=== PATIENT | female | born 1960 | race Caucasian/White ===

== ENCOUNTER 2016-05-24 17:30 | Emergency (ER) | payer SELFPAY ==
[2016-05-24] VITALS (9 sets, daily range): BP systolic 142–211; BP diastolic 68–117; PULSE 66–106; RESP 16–18; TEMP 98; O2SAT 94–100
[~2016-05-24] VITALS: Ht 170.2 cm; Wt 68.0 kg
[~2016-05-24 17:30] MED LIST: FISHCAP PO; HYDR-2768 PO; LISI-363 PO; LISI-366 PO; PROZ20CA11 PO
--- NOTE | 2016-05-24 17:55 | PD ---
HPI Chief Complaint: Fall Time Seen by Provider: 17:50 Travel History International Travel<30 days: No Contact w/Intl Traveler<30days: No Traveled to known affect area: No History of Present Illness HPI This 56-year-old female says she tripped and landed on her left arm. Complaining of a lot of pain in the left elbow. She did not hit her head. She says nothing else hurts except for the elbow. She says she is allergic to all pain medicines. She also has a history of palpitations. She later told me that she did receive pain medicine at [place] and review of that chart shows that she received Dilaudid and oxycodone. PFSH Past Medical History Depression: Yes Cardiac Catheterization: Yes High Cholesterol: Yes Chest Pain: Yes (2008) Congestive Heart Failure: No Diabetes: No Diminished Hearing: No Hypertension: Yes Myocardial Infarction: Yes (AT AGE 16 AND 05/27 PER PT) Menopausal: Yes : 2 Para: 2 Past Surgical History Abdominal Surgery: Yes (EXPLORATORY ) Appendectomy: Yes Coronary Artery Bypass Graft: No Ear Surgery: Yes (RT EAR SURG- repair hearing loss) Hysterectomy: Yes (1987) Social History Alcohol Use: Yes (occas. beer) Tobacco Use: Yes (1 ppd) Substance Use: No Allergies-Medications (Allergen,Severity, Reaction): Coded Allergies: Codeine (Verified Allergy, Severe, RASH/VOMITING, 05/24/16) Penicillin (Verified Allergy, Severe, 05/24/16) Remeron Tatyana-Tab (Verified Allergy, Unknown, 05/24/16) Morphine (Verified Adverse Reaction, Intermediate, NAUSEA, 05/24/16) Reported Meds & Prescriptions Reported Meds & Active Scripts Active Reported Lisinopril 20 Mg Tab 20 Mg PO DAILY Review of Systems General / Constitutional: No: Chills Eyes: No: Diploplia HENT: No: Headaches, Vertigo Cardiovascular: No: Chest Pain or Discomfort Respiratory: No: Cough, Shortness of Breath Gastrointestinal: No: Nausea, Vomiting Genitourinary: No: Frequency, Dysuria Musculoskeletal: Positive: Myalgias, Pain Skin: No Itching, No Dryness Neurologic: No: Weakness Physical Exam Narrative GENERAL: Well-developed female SKIN: Focused skin assessment warm/dry. HEAD: Atraumatic. Normocephalic. EYES: Pupils equal and round. No scleral icterus. No injection or drainage. ENT: No nasal bleeding or discharge. Mucous membranes pink and moist. NECK: Trachea midline. No JVD. CARDIOVASCULAR: Regular rate and rhythm. No murmur appreciated. RESPIRATORY: No accessory muscle use. Clear to auscultation. Breath sounds equal bilaterally. GASTROINTESTINAL: Abdomen soft, non-tender, nondistended. Hepatic and splenic margins not palpable. MUSCULOSKELETAL: . No clubbing. No cyanosis. No edema. No swelling of the left elbow. She refuses any attempted movement. It is exquisitely tender. 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 No obvious cranial nerve deficits. Motor grossly within normal limits. Normal speech. PSYCHIATRIC: Appropriate mood and affect; insight and judgment normal. Data Data Last Documented VS Vital Signs Date Time Temp Pulse Resp B/P Pulse Ox O2 Delivery O2 Flow Rate FiO2 05/24/16 17:57 106 16 211/114 100 Room Air 05/24/16 17:34 98.0 Orders Elbow, Limited (Ap&Lat) (05/24/16 ) Hydromorphone Pf Inj (Dilaudid Pf Inj) (05/24/16 18:30) Ondansetron Inj (Zofran Inj) (05/24/16 18:30) Propofol 200 Mg/20 Ml Inj (Diprivan 200 (05/24/16 18:30) Elbow, Limited (Ap&Lat) (05/24/16 19:25) Splint Or Brace Apply/Monitor (05/24/16 19:40) Fiberglass Splint Elbow Adult (05/24/16 ) Sling Cradle Arm (05/24/16 ) MDM Medical Decision Making Medical Screen Exam Complete: Yes Emergency Medical Condition: Yes Medical Record Reviewed: Yes Differential Diagnosis Differential includes fracture, dislocation Narrative Course X-ray of the left elbow shows a posterior dislocation. There is question of a small avulsion off the anterior clinoid. Conscious sedation was performed in the dislocation has been reduced. Patient tolerated the procedure well and the arms noted. She'll be released Procedures Procedure Narrative After informed consent was obtained the patient was sedated with propofol. She was maintained on cardiopulmonary monitoring. The elbow was reduced with longitudinal traction and flexion. Straight leg shows the bones to be in good position. She'll be splinted and recommendations for orthopedic follow-up. After reduction there is good sensation in the hand. There is good radial pulse. Time of sedation was 15 minutes Diagnosis Primary Impression: Dislocation of left elbow Qualified Code: S53.105A - Dislocation of left elbow, initial encounter Additional Instructions: Follow-up with Dr. Abernathy, apply ice to elbow Scripts Oxycodone-Acetaminophen (Percocet)7.5-325 mg Tab1 Tab PO Q4H PRN (PAIN) #30 TAB Ref 0 Prov:Bradford Bailey MD 05/24/16 Disposition: 01 DISCHARGE HOME Condition: Stable Bradford Bailey MD May 24, 2016 17:55
[2016-05-24] MEDS ORDERED: LISI-515 PO (18:03)
[2016-05-24] MEDS ORDERED: HYDROmorphone HCL PF 1 MG/ML VIAL IV PUSH ONE (18:30)
[2016-05-24] MEDS ORDERED: ONDANSETRON HCL 4 MG/2 ML VIAL IV PUSH ONE (18:30)
[2016-05-24] MEDS ORDERED: PROPOFOL 200 MG/20 ML AMP IV ONE (18:30)
--- NOTE | 2016-05-24 18:54 | RADHPO ---
EXAM DATE/TIME: 05/24/2016 18:07 [facility] COMPARISON: No previous studies available for comparison. INDICATIONS : Left elbow pain; fell today. MEDICAL HISTORY : None. SURGICAL HISTORY : None. ENCOUNTER: Initial ACUITY: 1 day PAIN SCORE: 10/10 LOCATION: Left elbow. FINDINGS: There is complete dislocation of the humerus anteriorly out of the joint. There may be a tiny avulsio n at this site coming off the anterior clinoid. CONCLUSION: Complete dislocation. KChuckie Martinez MD on May 24, 2016 at 18:51 Board Certified Radiologist. This report was verified electronically.
--- NOTE | 2016-05-24 20:32 | RADHPO ---
EXAM DATE/TIME: 05/24/2016 20:09 [facility] COMPARISON: ELBOW LEFT LIMITED (AP & LAT), May 24, 2016, 18:07. INDICATIONS : Post reduction left elbow. MEDICAL HISTORY : None. SURGICAL HISTORY : None. ENCOUNTER: Subsequent ACUITY: 1 day PAIN SCORE: 4/10 LOCATION: Left elbow. FINDINGS: Previously seen dislocation has been reduced. The rest of the examination has not significantly connor ed. CONCLUSION: Reduction of the previously seen dislocation. Rodger Martinez MD on May 24, 2016 at 20:30 Board Certified Radiologist. This report was verified electronically.
[2016-05-24] MEDS ORDERED: PERC7.5T13 PO (20:35)
[2016-05-24] MEDS ORDERED: oxyCODONE/ACETAMINOPHEN 5 MG/325 MG TAB PO ONE (21:00)
== END 2016-05-24 21:04 | disposition home or self-care (01) ==
LOC: EDBD → PHED 17:30
DX: S53.105A Unspecified dislocation of left ulnohumeral joint, initial encounter (principal); I10 Essential (primary) hypertension; E78.00 Pure hypercholesterolemia, unspecified; F17.200 Nicotine dependence, unspecified, uncomplicated; Z86.59 Personal history of other mental and behavioral disorders; Z86.79 Personal history of other diseases of the circulatory system; W01.0XXA Fall on same level from slipping, tripping and stumbling without subsequent striking against object, initial encounter
CPT/HCPCS: 24600; 73070; 96374; 96375; 99152; 99283; J1170; J2405

== ENCOUNTER 2016-06-01 11:40 | Emergency (ER) | payer SELFPAY ==
[~2016-06-01] VITALS: Ht 165.1 cm; Wt 66.0 kg
[~2016-06-01 11:40] MED LIST changes: -FISHCAP PO; -HYDR-2768 PO; -LISI-363 PO; -LISI-366 PO; +LISI-515 PO; +PERC7.5T13 PO; -PROZ20CA11 PO
[2016-06-01 12:02] VITALS: BP 165/105; PULSE 70; RESP 16; TEMP 98.5; O2SAT 99
--- NOTE | 2016-06-01 12:13 | PD ---
HPI Chief Complaint: Wound/Suture/Staple Re-Check Time Seen by Provider: 12:13 Travel History International Travel<30 days: No Contact w/Intl Traveler<30days: No Traveled to known affect area: No History of Present Illness HPI 57-year-old female presents the emergency department status post left elbow dislocation and reduction on May 24, 2016. Patient presents with ongoing pain and need for pain control as she is "unable to take her oxycodone due to nausea." Patient was referred to Dr. Abernathy orthopedist follow-up, but she has not set that appointment up yet as she is without insurance or a picture ID. Patient feels the splint that is on there is not sufficient. Patient is asking if we can take it off. She has no other acute complaints. Patient states she is allergic to codeine, morphine, penicillin, Percocet, Remeron. PFSH Past Medical History Hx Anticoagulant Therapy: No Depression: Yes Cardiac Catheterization: Yes Cardiovascular Problems: Yes ([place], HTN) High Cholesterol: Yes Chest Pain: Yes (2008) Congestive Heart Failure: No Diabetes: No Diminished Hearing: No Hypertension: Yes Respiratory: Yes (EMPHYSEMA) Myocardial Infarction: Yes (AT AGE 16 AND 05/27 PER PT) ?: Not Menopausal: Yes : 2 Para: 2 Past Surgical History Abdominal Surgery: Yes (EXPLORATORY ) Appendectomy: Yes Coronary Artery Bypass Graft: No Ear Surgery: Yes (RT EAR SURG- repair hearing loss) Hysterectomy: Yes Social History Alcohol Use: Yes (occas. beer) Tobacco Use: Yes (1 ppd) Substance Use: No Allergies-Medications (Allergen,Severity, Reaction): Coded Allergies: Codeine (Verified Allergy, Severe, RASH/VOMITING, 06/01/16) Penicillin (Verified Allergy, Severe, 06/01/16) Percocet (Verified Allergy, Unknown, 06/01/16) Remeron Tatyana-Tab (Verified Allergy, Unknown, 06/01/16) Morphine (Verified Adverse Reaction, Intermediate, NAUSEA, 06/01/16) Reported Meds & Prescriptions Reported Meds & Active Scripts Active Percocet (Oxycodone-Acetaminophen) 7.5-325 mg Tab 1 Tab PO Q4H PRN Reported Lisinopril 20 Mg Tab 20 Mg PO DAILY Review of Systems Except as stated in HPI: all other systems reviewed are Neg General / Constitutional: No: Fever Eyes: No: Visual changes HENT: No: Headaches Cardiovascular: No: Chest Pain or Discomfort Respiratory: No: Shortness of Breath Gastrointestinal: No: Abdominal Pain Genitourinary: No: Dysuria Musculoskeletal: No: Pain Skin: No Rash Neurologic: No: Weakness Psychiatric: No: Depression Endocrine: No: Polydipsia Hematologic/Lymphatic: No: Easy Bruising Physical Exam Narrative GENERAL: Patient appears in no acute distress. SKIN: Warm and dry. Normal color. Normal turgor. There is mild ecchymosis and swelling over the left elbow consistent with her injury. HEAD: Atraumatic. Normocephalic. EYES: Pupils equal and round. No scleral icterus. No injection or drainage. ENT: No nasal bleeding or discharge. Mucous membranes pink and moist. Pharynx is clear. NECK: Trachea midline. Neck is supple nontender. CARDIOVASCULAR: Regular rate and rhythm. RESPIRATORY: No accessory muscle use. Clear to auscultation. Breath sounds equal bilaterally. MUSCULOSKELETAL: Extremities without clubbing, cyanosis, or edema. No obvious deformities. Range of motion of the left elbow is limited secondary to pain. Left Junior Account Executive strength is normal. Left neurovascular exam is normal. New splint is applied. NEUROLOGICAL: Awake and alert. No obvious cranial nerve deficits. Motor grossly within normal limits. Five out of 5 muscle strength in the arms and legs. Normal speech. PSYCHIATRIC: Appropriate mood and affect; insight and judgment normal. Data Data Last Documented VS Vital Signs Date Time Temp Pulse Resp B/P Pulse Ox O2 Delivery O2 Flow Rate FiO2 06/01/16 12:02 98.5 70 16 165/105 99 Orders Acetamin-Hydrocod 325-10 Mg ([place] 10-32 (06/01/16 12:30) Support Splint (06/01/16 12:29) [facility] Medical Decision Making Medical Screen Exam Complete: Yes Emergency Medical Condition: Yes Medical Record Reviewed: Yes Differential Diagnosis Fall. Left elbow dislocation. Need for orthopedic follow-up. Pain management. Narrative Course Patient is medically stable at time of exam. Patient is given Lortab 10/325 by mouth 1. Left elbow is resplinted with sugar tong and posterior combination splint. Sling is applied. Patient is given a prescription for tramadol 50 mg one every 6 hours when necessary pain #20. Patient also given ibuprofen 600 mg 4 times a day for 40. Patient is given a one-time visit for orthopedic which she needs to follow-up with for further management and pain control. Diagnosis Primary Impression: Dislocation of left elbow Qualified Code: S53.105D - Dislocation of left elbow, subsequent encounter Referrals: Dean Abernathy MD call for appointment Patient Instructions: General Instructions Additional Instructions: Patient is given Lortab 10/325 by mouth 1. Left elbow is resplinted with sugar tong and posterior combination splint. Sling is applied. Patient is given a prescription for tramadol 50 mg one every 6 hours when necessary pain #20. Patient also given ibuprofen 600 mg 4 times a day for 40. Patient is given a one-time visit for orthopedic which she needs to follow-up with for further management and pain control. Disposition: 01 DISCHARGE HOME Condition: Stable Heber Vo Jun 01, 2016 12:13
[2016-06-01] MEDS ORDERED: ACETAMINOPHEN/HYDROcodone 325 MG/10 MG TAB PO ONE (12:30)
[2016-06-01] MEDS ORDERED: IBUP-232 PO (12:41)
[2016-06-01] MEDS ORDERED: TRAM50TA PO (12:41)
[2016-06-01] MEDS ORDERED: VIST50CA PO (13:49)
== END 2016-06-01 13:53 | disposition home or self-care (01) ==
LOC: PHEFT 11:40
DX: S53.105D Unspecified dislocation of left ulnohumeral joint, subsequent encounter (principal)
CPT/HCPCS: 29105

== ENCOUNTER 2017-02-28 23:20 | Emergency (ER) | payer SELFPAY ==
[~2017-02-28] VITALS: Ht 162.6 cm; Wt 70.0 kg
[~2017-02-28 23:20] MED LIST changes: +IBUP-232 PO; +TRAM50TA PO; +VIST50CA PO
[2017-02-28 23:38] VITALS: BP 190/92; PULSE 113; RESP 22; TEMP 98.1; O2SAT 98
[2017-02-28 23:39] VITALS: O2SAT 98
[2017-02-28] MEDS ORDERED: SODIUM CHLORIDE 0.9% FLUSH 10 ML FLUSH IVF PRN (23:45)
[2017-02-28] MEDS ORDERED: methylPREDNISolone SOD SUCC 125 MG/2 ML VIAL IV PUSH ONE (23:45)
[2017-02-28] MEDS ORDERED: RESP: ALBUTEROL 2.5 MG/IPRATROPIUM 0.5 MG NEB (SCH) NEB ONE (23:45)
[2017-02-28 23:49] VITALS: BP 190/92; PULSE 128; RESP 18; O2SAT 97
[2017-02-28 23:50] VITALS: BP 176/105; PULSE 133; RESP 18; O2SAT 95
[2017-03-01 00:08] LABS: AUTOMATED NEUTROPHIL # 4.7 TH/MM3 (1.8-7.7); BASOPHIL # 0.1 TH/MM3 (0-0.2); BASOPHIL % 0.7 % (0.0-2.0); EOSINOPHIL # 0.3 TH/MM3 (0-0.4); EOSINOPHIL % 4.2 % (0.0-4.0); HEMATOCRIT 39.9 % (35.0-46.0); HEMOGLOBIN 13.4 GM/DL (11.6-15.3); LYMPH % 25.1 % (9.0-44.0); LYMPHOCYTE # 1.9 TH/MM3 (1.0-4.8); MEAN CELL VOLUME 90.7 FL (80.0-100.0); MEAN CORPUSCULAR HEMOGLOBIN 30.6 PG (27.0-34.0); MEAN CORPUSCULAR HGB CONC 33.7 % (32.0-36.0); MEAN PLATELET VOLUME 9.1 FL (7.0-11.0); MONOCYTE # 0.6 TH/MM3 (0-0.9); PLATELET COUNT 286 TH/MM3 (150-450); RED BLOOD COUNT 4.39 MIL/MM3 (4.00-5.30); WHITE BLOOD COUNT 7.6 TH/MM3 (4.0-11.0)
--- NOTE | 2017-03-01 00:10 | RADRPT ---
EXAM DATE/TIME: 02/28/2017 23:42 [facility] COMPARISON: No previous studies available for comparison. INDICATIONS : Pt woke with chest pain radiating down left arm. MEDICAL HISTORY : Hypercholesterolemia. Hypertension Myocardial infarction. Angina, Emphysema, A-Fib SURGICAL HISTORY : Appendectomy. Hysterectomy. Cardiac cath ENCOUNTER: Initial ACUITY: 1 day PAIN SCORE: 7/10 LOCATION: Bilateral chest FINDINGS: A single view of the chest demonstrates the lungs to be symmetrically aerated without evidence of mas s, infiltrate or effusion. The cardiomediastinal contours are unremarkable. Osseous structures are intact. CONCLUSION: Normal examination for a patient of this age. David Peters MD on March 01, 2017 at 0:07 Board Certified Radiologist. This report was verified electronically.
[2017-03-01] MEDS ORDERED: LABETALOL HCL 100 MG/20 ML VIAL IV PUSH STA (00:14)
[2017-03-01 00:22] VITALS: BP 139/81; PULSE 108; RESP 18; O2SAT 99
[2017-03-01 00:22] LABS: PROTHROMBIN TIME - PATIENT 9.9 SEC (9.8-11.6)
[2017-03-01 00:24] LABS: D-DIMER 0.46 MG/L FEU (0.00-0.50)
[2017-03-01 00:28] LABS: ALT (GPT) 26 U/L (10-53); AST (GOT) 20 U/L (15-37); BICARBONATE 26.9 MEQ/L (21.0-32.0); CALCIUM 9.1 MG/DL (8.5-10.1); CHLORIDE 105 MEQ/L (98-107); CREATININE 0.94 MG/DL (0.50-1.00); GLOMERULAR FILTRATION RATE 62 ML/MIN (>89); GLUCOSE,RANDOM 101 MG/DL (74-106); SODIUM (NA) 142 MEQ/L (136-145)
[2017-03-01 00:36] LABS: ALKALINE PHOSPHATASE 85 U/L (45-117); BLOOD UREA NITROGEN 20 MG/DL (7-18); TOTAL BILIRUBIN ADULT 0.3 MG/DL (0.2-1.0); TOTAL PROTEIN 7.2 GM/DL (6.4-8.2); TROPONIN I LESS THAN 0.02 NG/ML (0.02-0.05)
--- NOTE | 2017-03-01 06:53 | PD ---
HPI . Cardiac complaint Chief Complaint: Cardiac Complaint Time Seen by Provider: 23:37 Travel History International Travel<30 days: No Contact w/Intl Traveler<30days: No Traveled to known affect area: No History of Present Illness HPI 57-year-old female complains of palpitations and shortness of breath. Patient does have a history of having atrial fibrillation or tachyarrhythmias, patient does have a spurs diagnosis of emphysema in the past but is not on any medications for same. Patient states she was never a smoker. Patient denies any chest pain, denies night sweats or weight loss recently, denies any use of stimulants. She denies any fever chills sweats. Patient also denies any recent confined travel sedentary period. Denies any leg pain or swelling of late PFSH Past Medical History Narrative Medical Past medical history reviewed Hx Anticoagulant Therapy: No Depression: Yes Cardiac Catheterization: Yes Cardiovascular Problems: Yes ([place], HTN) High Cholesterol: Yes Chest Pain: Yes (2008) Congestive Heart Failure: No Diabetes: No Diminished Hearing: No Hypertension: Yes Respiratory: Yes (EMPHYSEMA) Myocardial Infarction: Yes (AT AGE 16 AND 5 PER PT) Influenza Vaccination: No Menopausal: Yes : 2 Para: 2 Past Surgical History Abdominal Surgery: Yes (EXPLORATORY ) Appendectomy: Yes Coronary Artery Bypass Graft: No Ear Surgery: Yes (RT EAR SURG- repair hearing loss) Hysterectomy: Yes Social History Alcohol Use: Yes (occas. beer) Tobacco Use: Yes (1 ppd) Substance Use: No Allergies-Medications (Allergen,Severity, Reaction): Coded Allergies: codeine (Unverified Allergy, Severe, RASH/VOMITING, 02/28/17) penicillin G (Unverified Allergy, Severe, 02/28/17) acetaminophen (Unverified Allergy, Unknown, 02/28/17) mirtazapine (Unverified Allergy, Unknown, 02/28/17) oxycodone (Unverified Allergy, Unknown, 02/28/17) morphine (Unverified Adverse Reaction, Intermediate, NAUSEA, 02/28/17) Reported Meds & Prescriptions Reported Meds & Active Scripts Active Reported Lisinopril 20 Mg Tab 20 Mg PO DAILY Narrative Medication Allergies and medication reviewed Review of Systems Except as stated in HPI: all other systems reviewed are Neg General / Constitutional: No: Fever Eyes: No: Visual changes HENT: No: Headaches Cardiovascular: Positive: Palpitations, Irregular Rhythm, Tachycardia, Dyspnea on exertion, No: Chest Pain or Discomfort, Diaphoresis, Syncope, Varicosities, Edema, Cyanosis, Varicosities, Phlebitis, Claudication Respiratory: Positive: Shortness of Breath, Wheezing, No: Cough, Sneezing, Orthopnea, Hemoptysis, Stridor, Night Sweats, Pleuritic Pain Gastrointestinal: No: Abdominal Pain Genitourinary: No: Dysuria Musculoskeletal: No: Pain Skin: No Rash Neurologic: No: Weakness Psychiatric: No: Depression Endocrine: No: Polydipsia Hematologic/Lymphatic: No: Easy Bruising Physical Exam Narrative GENERAL: Awake alert oriented 3 mild distress. Tachycardic 145 irregular rhythm pulse and noted on monitor SKIN: Warm and dry. Color is normal no cyanosis diaphoresis or pallor HEAD: Atraumatic. Normocephalic. EYES: Pupils equal and round. No scleral icterus. No injection or drainage. ENT: No nasal bleeding or discharge. Mucous membranes pink and moist. NECK: Trachea midline. No JVD. No goiter or thyroid mass, supple CARDIOVASCULAR: Irregular regular rhythm, no murmurs rubs or gallops. Tachycardic RESPIRATORY: No accessory muscle use. Clear to auscultation. Breath sounds equal bilaterally. GASTROINTESTINAL: Abdomen soft, non-tender, nondistended. Hepatic and splenic margins not palpable. MUSCULOSKELETAL: Extremities without clubbing, cyanosis, or edema. No obvious deformities. NEUROLOGICAL: Awake and alert. No obvious cranial nerve deficits. Motor grossly within normal limits. Five out of 5 muscle strength in the arms and legs. Normal speech. PSYCHIATRIC: Appropriate mood and affect; insight and judgment normal. Data Data Last Documented VS Vital Signs Date Time Temp Pulse Resp B/P (MAP) Pulse Ox O2 Delivery O2 Flow Rate FiO2 03/01/17 00:22 108 18 139/81 (100) 99 Nasal Cannula 2.00 02/28/17 23:38 98.1 Orders Orders Electrocardiogram (02/28/17 23:37) B-Type Natriuretic Peptide (02/28/17 23:37) Ckmb (Isoenzyme) Profile (02/28/17 23:37) Complete Blood Count With Diff (02/28/17 23:37) Comprehensive Metabolic Panel (02/28/17 23:37) D-Dimer (02/28/17 23:37) Magnesium (Mg) (02/28/17 23:37) Prothrombin Time / Inr (Pt) (02/28/17 23:37) Act Partial Throm Time (Ptt) (02/28/17 23:37) Troponin I (02/28/17 23:37) Chest, Single Ap (02/28/17 23:37) Ecg Monitoring (02/28/17 23:37) Bilateral Bp Monitoring (02/28/17 23:37) Iv Access Insert/Monitor (02/28/17 23:37) Oximetry (02/28/17 23:37) Oxygen Administration (02/28/17 23:37) Sodium Chloride 0.9% Flush (Ns Flush) (02/28/17 23:45) Albuterol-Ipratropium Neb (Duoneb Neb) (02/28/17 23:45) Methylprednisolone So Succ Inj (Solumedr (02/28/17 23:45) Labetalol Inj (Trandate Inj) (03/01/17 00:14) Electrocardiogram (03/01/17 ) Thyroid Stimulating Hormone (02/28/17 23:53) Troponin I (03/01/17 02:43) Troponin I (03/01/17 05:04) Labs Laboratory Tests Test 02/28/17 23:53 03/01/17 03:07 03/01/17 06:00 White Blood Count 7.6 TH/MM3 Red Blood Count 4.39 MIL/MM3 Hemoglobin 13.4 GM/DL Hematocrit 39.9 % Mean Corpuscular Volume 90.7 FL Mean Corpuscular Hemoglobin 30.6 PG Mean Corpuscular Hemoglobin Concent 33.7 % Red Cell Distribution Width 13.0 % Platelet Count 286 TH/MM3 Mean Platelet Volume 9.1 FL Neutrophils (%) (Auto) 62.0 % Lymphocytes (%) (Auto) 25.1 % Monocytes (%) (Auto) 8.0 % Eosinophils (%) (Auto) 4.2 % Basophils (%) (Auto) 0.7 % Neutrophils # (Auto) 4.7 TH/MM3 Lymphocytes # (Auto) 1.9 TH/MM3 Monocytes # (Auto) 0.6 TH/MM3 Eosinophils # (Auto) 0.3 TH/MM3 Basophils # (Auto) 0.1 TH/MM3 CBC Comment DIFF FINAL Differential Comment Prothrombin Time 9.9 SEC Prothromb Time International Ratio 1.0 RATIO Activated Partial Thromboplast Time 23.9 SEC D-Dimer Quantitative (PE/DVT) 0.46 MG/L FEU Blood Urea Nitrogen 20 MG/DL Creatinine 0.94 MG/DL Random Glucose 101 MG/DL Total Protein 7.2 GM/DL Albumin 4.0 GM/DL Calcium Level 9.1 MG/DL Magnesium Level 2.0 MG/DL Alkaline Phosphatase 85 U/L Aspartate Amino Transf (AST/SGOT) 20 U/L Alanine Aminotransferase (ALT/SGPT) 26 U/L Total Bilirubin 0.3 MG/DL Sodium Level 142 MEQ/L Potassium Level 3.2 MEQ/L Chloride Level 105 MEQ/L Carbon Dioxide Level 26.9 MEQ/L Anion Gap 10 MEQ/L Estimat Glomerular Filtration Rate 62 ML/MIN Total Creatine Kinase 98 U/L Troponin I LESS THAN 0.02 NG/ML 0.03 NG/ML LESS THAN 0.02 NG/ML B-Type Natriuretic Peptide 43 PG/ML Thyroid Stimulating Hormone 3rd Gen 1.860 uIU/ML [facility] Medical Decision Making Medical Screen Exam Complete: Yes Emergency Medical Condition: Yes Medical Record Reviewed: Yes Differential Diagnosis Atrial fibrillation with RVR, multifocal atrial tachycardia, dyspnea, emphysema Narrative Course Patient was noted to have P waves of different morphology on cardiac/vascular sonographer after administration of oxygen. Patient has significant improvement with oxygen administration. Albuterol Atrovent treatment given for treatment of dyspnea respiratory distress and possible multiple focal atrial tachycardia.. Patient noted improvement in her respiratory symptoms however has increase in her heart rate. Patient was given labetalol 10 mg IV push with resolution of her tachycardia and conversion to normal sinus rhythm Patient's laboratory examinations reviewed, patient has a negative d-dimer, negative troponin, normal TSH. EKG post cardioversion normal sinus rhythm at 64 bpm, nonischemic, intervals normal repeat cardiac enzymes 3 and 6 hours normal Diagnosis Primary Impression: Atrial fibrillation Qualified Codes: I48.0 - Paroxysmal atrial fibrillation Additional Impression: Dyspnea Qualified Codes: R06.00 - Dyspnea, unspecified Patient Instructions: A-fib (Atrial Fibrillation) (ED), General Instructions Additional Instructions: Follow-up with your doctor. Return probably for worsening Disposition: 01 DISCHARGE HOME Condition: Stable Valdez Wilson MD Mar 01, 2017 06:53
[2017-03-01 07:09] VITALS: BP 130/75; PULSE 71; RESP 16; O2SAT 97
--- NOTE | 2017-03-01 16:26 | EKG ---
Date Performed: 02/28/2017 Time Performed: 23:33:01 PTAGE: 57 years EKG: ATRIAL FIBRILLATION WITH RAPID VENTRICULAR RESPONSE ABNORMAL RHYTHM ECG PREVIOUS TRACING 11/06/13 @ 18.00.22 Since previous tracing, no significant change noted DOCTOR: Otis Berry Interpretating Date/Time 03/01/2017 16:25:30
--- NOTE | 2017-03-01 16:27 | EKG ---
Date Performed: 03/01/2017 Time Performed: 01:19:43 PTAGE: 57 years EKG: Sinus rhythm NORMAL ECG PREVIOUS TRACING : 03/01/2017 01.19 Since previous tracing, no significant change noted DOCTOR: Otis Berry Interpretating Date/Time 03/01/2017 16:26:10
== END 2017-03-01 07:31 | disposition home or self-care (01) ==
LOC: NEPE 23:20
DX: I48.0 Paroxysmal atrial fibrillation (principal); R06.00 Dyspnea, unspecified; E78.00 Pure hypercholesterolemia, unspecified; F32.9 Major depressive disorder, single episode, unspecified; I10 Essential (primary) hypertension; J43.9 Emphysema, unspecified; I25.2 Old myocardial infarction; F17.200 Nicotine dependence, unspecified, uncomplicated
CPT/HCPCS: 71045; 80053; 82550; 83735; 83880; 84443; 84484; 85025; 85379; 85610; 85730; 93005; 94664; 96374; 99285; J2930

== ENCOUNTER 2017-08-07 18:34 | Observation (INO) | payer SELFPAY ==
[~2017-08-07] VITALS: Ht 165.1 cm; Wt 69.0 kg
[~2017-08-07 18:34] MED LIST changes: -IBUP-232 PO; -PERC7.5T13 PO; -TRAM50TA PO; -VIST50CA PO
[2017-08-07 18:45] VITALS: BP 142/75; PULSE 71; RESP 18; TEMP 98.4; O2SAT 97
[2017-08-07] MEDS ORDERED: ASPIRIN 325 MG TAB PO ONE (18:45)
[2017-08-07] MEDS ORDERED: LISI20TA3 PO (18:45)
[2017-08-07] MEDS ORDERED: SODIUM CHLORIDE 0.9% FLUSH 10 ML FLUSH IVF PRN (18:45)
[2017-08-07] MEDS ORDERED: ASPI-183 PO (18:45)
[2017-08-07 19:01] VITALS: PULSE 87; RESP 18; O2SAT 96
[2017-08-07] MEDS ORDERED: SODIUM CHLOR 0.9% 1000 ML INJ 1,000 ML IV ONE (19:15)
[2017-08-07 19:24] VITALS: BP_SYST 165; BP_SYST 166; BP_DIAS 89; BP_DIAS 96; PULSE 74; RESP 20; O2SAT 97
--- NOTE | 2017-08-07 19:28 | RADRPT ---
EXAM DATE: 08/07/2017 7:16 PM EDT AGE/SEX: 58 years / Female INDICATIONS: Chest Pain. CLINICAL DATA: This is the patient's initial encounter. Patient reports that signs and symptoms have been present for 1 day and indicates a pain score of 0/10. MEDICAL/SURGICAL HISTORY: Hypercholesterolemia. Hypertension. Myocardial infraction. Angina. E mphysema, A-Fib. Appendectomy. Hysterectomy. Cardiac cath. COMPARISON: No prior exams available for comparison. FINDINGS: PA and lateral views of the chest demonstrate the lungs to be symmetrically aerated without evidence of mass, infiltrate or effusion. The cardiomediastinal contours are unremarkable. Osseous structures are intact. CONCLUSION: No acute cardiopulmonary disease Electronically signed by: Thom Armstrong MD 08/07/2017 7:26 PM EDT
[2017-08-07] MEDS ORDERED: ONDANSETRON ODT 4 MG TAB PO ONE (19:30)
--- NOTE | 2017-08-07 19:35 | PD ---
HPI Chief Complaint: Chest Pain Time Seen by Provider: 18:42 Travel History International Travel<30 days: No Contact w/Intl Traveler<30days: No Traveled to known affect area: No History of Present Illness HPI 58-year-old female with PMH of HTN, paroxysmal A. fib presents the ED via EMS for evaluation of approximate 24 hour history of chest pain. Patient describes this discomfort as a pulling sensation across the central chest. It has been intermittent since yesterday. No alleviating or exacerbating factors reported. She states that this afternoon she began to have nausea and perioral tingling. This caused her to call EMS. On presentation the patient rates the pain 0/10. She endorses mild dizziness. She endorses "fluttering" sensation in the chest. She denies diaphoresis, shortness of breath. Patient occasionally drinks alcohol. She states that she spent approximately 5 hours at the pool with her daughter yesterday. She endorses occasional cigarette smoking. She endorses history of heart cath, unsure what the results were. She endorses compliance with lisinopril HCTZ. PFSH Past Medical History Hx Anticoagulant Therapy: No Depression: Yes Cardiac Catheterization: Yes Cardiovascular Problems: Yes (RI, HTN) High Cholesterol: Yes Chest Pain: Yes (2008) Congestive Heart Failure: No Diabetes: No Diminished Hearing: No Hypertension: Yes Respiratory: Yes (EMPHYSEMA) Myocardial Infarction: Yes (AT AGE 16 AND 05/27 PER PT) ?: Not Menopausal: Yes : 2 Para: 2 Past Surgical History Abdominal Surgery: Yes (EXPLORATORY ) Appendectomy: Yes Coronary Artery Bypass Graft: No Ear Surgery: Yes (RT EAR SURG- repair hearing loss) Hysterectomy: Yes Social History Alcohol Use: Yes (occas. beer) Tobacco Use: Yes Substance Use: No Allergies-Medications (Allergen,Severity, Reaction): Coded Allergies: codeine (Unverified Allergy, Severe, RASH/VOMITING, 08/07/17) penicillin G (Unverified Allergy, Severe, 08/07/17) acetaminophen (Unverified Allergy, Unknown, 08/07/17) mirtazapine (Unverified Allergy, Unknown, 08/07/17) oxycodone (Unverified Allergy, Unknown, 08/07/17) morphine (Unverified Adverse Reaction, Intermediate, NAUSEA, 08/07/17) Reported Meds & Prescriptions Reported Meds & Active Scripts Active Reported Aspirin 325 Mg Tab 325 Mg PO DAILY Lisinopril-Hctz 20-25 Mg Tab 1 Tab PO DAILY Review of Systems Except as stated in HPI: all other systems reviewed are Neg Physical Exam Narrative GENERAL: Well-nourished, well-developed anxious white female no acute distress. SKIN: Focused skin assessment warm/dry. Deeply tanned. HEAD: Normocephalic. EYES: No scleral icterus. No injection or drainage. NECK: Supple, trachea midline. No JVD or lymphadenopathy. CARDIOVASCULAR: Regular rate and rhythm without murmurs, gallops, or rubs. CHEST: Nontender throughout without deformity or crepitus. No retractions. RESPIRATORY: Breath sounds clear and equal bilaterally. No accessory muscle use. GASTROINTESTINAL: Abdomen soft, non-tender, nondistended. Active bowel sounds. MUSCULOSKELETAL: No cyanosis, or edema. Moves extremities spontaneously. BACK: Nontender without obvious deformity. No CVA tenderness. Data Data Last Documented VS Vital Signs Date Time Temp Pulse Resp B/P (MAP) Pulse Ox O2 Delivery O2 Flow Rate FiO2 08/07/17 19:25 97 Room Air 08/07/17 19:24 74 20 165/89 (114) 08/07/17 18:45 98.4 Orders Orders Electrocardiogram (08/07/17 18:43) Ckmb (Isoenzyme) Profile (08/07/17 18:43) Complete Blood Count With Diff (08/07/17 18:43) Comprehensive Metabolic Panel (08/07/17 18:43) Magnesium (Mg) (08/07/17 18:43) Prothrombin Time / Inr (Pt) (08/07/17 18:43) Act Partial Throm Time (Ptt) (08/07/17 18:43) Troponin I (08/07/17 18:43) Ecg Monitoring (08/07/17 18:43) Bilateral Bp Monitoring (08/07/17 18:43) Iv Access Insert/Monitor (08/07/17 18:43) Oximetry (08/07/17 18:43) Oxygen Administration (08/07/17 18:43) Aspirin (Aspirin) (08/07/17 18:45) Sodium Chloride 0.9% Flush (Ns Flush) (08/07/17 18:45) Chest, Pa & Lat (08/07/17 18:43) Sodium Chlor 0.9% 1000 Ml Inj (Ns 1000 M (08/07/17 19:15) Ondansetron Odt (Zofran Odt) (08/07/17 19:30) CKMB (08/07/17 19:20) CKMB% (08/07/17 19:20) Nitroglycerin 2% Oint (Nitroglycerin 2% (08/07/17 20:30) Metoclopramide Inj (Reglan Inj) (08/07/17 20:30) Potassium Chloride (Kcl) (08/07/17 21:00) Lorazepam (Ativan) (08/07/17 21:15) Admit Order (Ed Use Only) (08/07/17:) Place In Observation (08/07/17:) Activity Bed Rest With Brp (08/07/17 21:) Vital Signs (Adult) Q4H (08/07/17 21:06) Cardiac Rhythm .As Directed (08/07/17:) Notify Dr: Other .PRN (08/07/17 21:) Notify DrChuckie Parameters (08/07/17 21:06) Resp Oxygen Nasal Cannula (08/07/17 ) Ckmb (Isoenzyme) Profile (08/07/17 21:06) Ckmb (Isoenzyme) Profile (08/08/17 00:06) Troponin I (08/07/17 21:06) Troponin I (08/08/17 00:06) Electrocardiogram (08/07/17 21:06) Electrocardiogram (08/08/17 00:06) ^ Obtain (08/07/17 21:06) Sodium Chloride 0.9% Flush (Ns Flush) (08/07/17 21:15) Sodium Chloride 0.9% Flush (Ns Flush) (08/08/17 09:00) Automatic Pilot Mechanic / Telemetry [id number].[id number] (08/07/17 21:06) CKMB (08/07/17 22:15) CKMB% (08/07/17 22:15) Labs Laboratory Tests Test 08/07/17 19:20 White Blood Count 7.9 TH/MM3 Red Blood Count 4.66 MIL/MM3 Hemoglobin 14.4 GM/DL Hematocrit 41.9 % Mean Corpuscular Volume 89.8 FL Mean Corpuscular Hemoglobin 30.8 PG Mean Corpuscular Hemoglobin Concent 34.3 % Red Cell Distribution Width 12.9 % Platelet Count 299 TH/MM3 Mean Platelet Volume 9.0 FL Neutrophils (%) (Auto) 60.0 % Lymphocytes (%) (Auto) 25.4 % Monocytes (%) (Auto) 8.5 % Eosinophils (%) (Auto) 5.3 % Basophils (%) (Auto) 0.8 % Neutrophils # (Auto) 4.7 TH/MM3 Lymphocytes # (Auto) 2.0 TH/MM3 Monocytes # (Auto) 0.7 TH/MM3 Eosinophils # (Auto) 0.4 TH/MM3 Basophils # (Auto) 0.1 TH/MM3 CBC Comment DIFF FINAL Differential Comment Prothrombin Time 10.0 SEC Prothromb Time International Ratio 1.0 RATIO Activated Partial Thromboplast Time 24.7 SEC Blood Urea Nitrogen 21 MG/DL Creatinine 1.24 MG/DL Random Glucose 90 MG/DL Total Protein 7.7 GM/DL Albumin 4.3 GM/DL Calcium Level 10.0 MG/DL Magnesium Level 2.4 MG/DL Alkaline Phosphatase 102 U/L Aspartate Amino Transf (AST/SGOT) 36 U/L Alanine Aminotransferase (ALT/SGPT) 30 U/L Total Bilirubin 0.5 MG/DL Sodium Level 138 MEQ/L Potassium Level 3.1 MEQ/L Chloride Level 98 MEQ/L Carbon Dioxide Level 25.5 MEQ/L Anion Gap 15 MEQ/L Estimat Glomerular Filtration Rate 45 ML/MIN Total Creatine Kinase 134 U/L Creatine Kinase MB 2.2 NG/ML Troponin I LESS THAN 0.02 NG/ML MDM Medical Decision Making Medical Screen Exam Complete: Yes Emergency Medical Condition: Yes Medical Record Reviewed: Yes Differential Diagnosis Anxiety versus dysrhythmia versus chest pain versus angina versus ACS versus metabolic derangement versus dehydration versus other Narrative Course 58-year-old female with PMH of HTN, paroxysmal A. fib presents the ED via EMS for evaluation of approximate 24 hour history of intermittent chest pain. Patient describes a pulling sensation across the central chest. No alleviating or exacerbating factors reported. She states that this afternoon she began to have nausea and perioral tingling. She endorses "fluttering" sensation in the chest. She denies diaphoresis, shortness of breath. Patient occasionally drinks alcohol. She endorses occasional cigarette smoking. She endorses history of heart cath, unsure what the results were. Denies familial history of RI. Vitals reviewed. Patient endorses dizziness when laid flat for physical exam. This resolves upon sitting up. It was otherwise reassuring. Patient took 2 full dose aspirin prior to arrival. IV was established. Patient was administered 1 L normal saline, 4 mg ODT Zofran. 1 inch nitroglycerin paste applied to the chest. I reviewed the patient's record. Patient underwent heart cath by Dr. Rivera on . There was minimal to mild three-vessel coronary disease, right dominant system. Normal LV function with estimated EF of 60%. EKG rate 67, sinus rhythm. WI interval 175, QRS 93, QTC 429 ms. Normal axis. No acute ST changes. Reviewed by Dr. Martínez. CXR: No acute cardiopulmonary disease per radiology read. Cardiac enzymes negative 1. CBC, coags unremarkable. CMP: BUN 21, creatinine 1.24. Potassium 3.1. Attempted to obtain CT of the brain. Patient was unable to tolerate this, refused testing. Attempted to replenish potassium by mouth, patient unable to swallow pills. I suspect that the patients symptoms are due to anxiety. She requested "something to help me sleep" and was administered 1 mg Ativan by mouth. However, the patient has several risk factors for CAD. Discussed the results of the workup with the patient as well as the recommendation for observation admission in the chest pain center. Patient's agreeable to this plan. Please see chest pain center notes for disposition. Starla Kimble Aug 07, 2017 19:35
[2017-08-07 19:39] LABS: AUTOMATED NEUTROPHIL # 4.7 TH/MM3 (1.8-7.7); BASOPHIL # 0.1 TH/MM3 (0-0.2); BASOPHIL % 0.8 % (0.0-2.0); EOSINOPHIL # 0.4 TH/MM3 (0-0.4); EOSINOPHIL % 5.3 % (0.0-4.0); HEMATOCRIT 41.9 % (35.0-46.0); HEMOGLOBIN 14.4 GM/DL (11.6-15.3); LYMPH % 25.4 % (9.0-44.0); MEAN CELL VOLUME 89.8 FL (80.0-100.0); MEAN CORPUSCULAR HEMOGLOBIN 30.8 PG (27.0-34.0); MEAN CORPUSCULAR HGB CONC 34.3 % (32.0-36.0); MONO % 8.5 % (0.0-8.0); MONOCYTE # 0.7 TH/MM3 (0-0.9); PLATELET COUNT 299 TH/MM3 (150-450); RED BLOOD COUNT 4.66 MIL/MM3 (4.00-5.30); RED CELL DISTRIBUTION WIDTH 12.9 % (11.6-17.2); WHITE BLOOD COUNT 7.9 TH/MM3 (4.0-11.0)
[2017-08-07 19:50] LABS: ALBUMIN 4.3 GM/DL (3.4-5.0); AST (GOT) 36 U/L (15-37); BICARBONATE 25.5 MEQ/L (21.0-32.0); BLOOD UREA NITROGEN 21 MG/DL (7-18); CHLORIDE 98 MEQ/L (98-107); CREATININE 1.24 MG/DL (0.50-1.00); GLOMERULAR FILTRATION RATE 45 ML/MIN (>89); GLUCOSE,RANDOM 90 MG/DL (74-106); MAGNESIUM 2.4 MG/DL (1.5-2.5); SODIUM (NA) 138 MEQ/L (136-145)
[2017-08-07 19:51] LABS: ALT (GPT) 30 U/L (10-53)
[2017-08-07 19:55] LABS: ALKALINE PHOSPHATASE 102 U/L (45-117); TOTAL BILIRUBIN ADULT 0.5 MG/DL (0.2-1.0); TOTAL PROTEIN 7.7 GM/DL (6.4-8.2); TROPONIN I LESS THAN 0.02 NG/ML (0.02-0.05)
[2017-08-07] MEDS ORDERED: METOCLOPRAMIDE HCL 10 MG/2 ML VIAL IV PUSH ONE (20:30)
[2017-08-07] MEDS ORDERED: NITROGLYCERIN 2% OINT 1 GM PACKET TOP ONE (20:30)
[2017-08-07] MEDS ORDERED: POTASSIUM CHLORIDE 20 MEQ CONTROLLED RELEASE TAB PO ONE (21:00)
[2017-08-07] MEDS ORDERED: LORazepam 1 MG TAB PO ONE (21:15)
[2017-08-07] MEDS ORDERED: SODIUM CHLORIDE 0.9% FLUSH 10 ML FLUSH IV FLUSH PRN (21:15)
[2017-08-07 22:49] LABS: TROPONIN I LESS THAN 0.02 NG/ML (0.02-0.05)
[2017-08-07 23:09] VITALS: BP 118/65; PULSE 64; RESP 16; O2SAT 97
[2017-08-08 01:38] LABS: TROPONIN I LESS THAN 0.02 NG/ML (0.02-0.05)
[2017-08-08 06:39] VITALS: BP 185/86; PULSE 76; RESP 15; O2SAT 100
[2017-08-08 07:43] VITALS: BP 166/87
[2017-08-08 08:00] VITALS: BP 174/82; PULSE 56; RESP 13; TEMP 98.7; O2SAT 99
--- NOTE | 2017-08-08 08:03 | HHI.HP ---
HPI Primary Care Physician Unknown Chief Complaint Chest pain History of Present Illness 58-year-old female with history of hypertension and 30-pack year smoking history presents the emergency room for further evaluation of nonexertional chest pain. Onset 2 days ago. Location substernal. Characterized as tightness , "like a rubber band." No radiation. Duration 30 seconds. Associated symptoms of nausea and numbness around mouth. No vomiting, dyspnea, or diaphoresis. No precipitating or relieving factors. Endorses possible anxiety involvement, history of panic attacks. Experienced "fluttering" in her chest intermittently yesterday. No current chest discomfort since arriving to ER. Review of Systems General: No fatigue, weakness, fever, chills, or recent illness. HEENT: No KAN, no vision changes, no nasal congestion or drainage, no dysphasia CV: As stated above. No current chest tightness. No further palpitations, intermittent leg pain, or dizziness. RESP: No SOB, cough, wheeze. 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 GI: No nausea, vomiting, bowel changes, diarrhea, constipation, pain, distention , melena, or blood in the stool. No unintentional weight gain or weight loss. : No dysuria, urgency, frequency EXT: No lower leg edema MS: No discomfort, injury, or change in ROM NEURO: No change in memory, difficulty with balance, LOC, motor/sensory deficits PSYCH: History of anxiety. No depression, increased situational stress, or suicidal ideation. SKIN: No rashes, no concerning lesions Past Family Social History Allergies: Coded Allergies: codeine (Unverified Allergy, Severe, RASH/VOMITING, 08/07/17) penicillin G (Unverified Allergy, Severe, 08/07/17) acetaminophen (Unverified Allergy, Unknown, 08/07/17) mirtazapine (Unverified Allergy, Unknown, 08/07/17) oxycodone (Unverified Allergy, Unknown, 08/07/17) morphine (Unverified Adverse Reaction, Intermediate, NAUSEA, 08/07/17) Past Medical History Hypertension, anxiety, former smoker, emphysema Past Surgical History Appendectomy, hysterectomy Reported Medications Reported Meds & Active Scripts Active Reported Aspirin 325 Mg Tab 325 Mg PO DAILY Lisinopril-Hctz 20-25 Mg Tab 1 Tab PO DAILY Active Ordered Medications Current Medications Medications (Trade) Dose Ordered Sig/[place] Route Start Time Stop Time Status Last Admin (NS Flush) 2 ml UNSCH PRN IVF 08/07/17 18:45 (NS Flush) 2 ml UNSCH PRN IV FLUSH 08/07/17 21:15 (NS Flush) 2 ml BID IV FLUSH 08/08/17 09:00 Family History Noncontributory for early onset cardiovascular disease Social History Known hypertension. No known coronary artery disease, diabetes, hyperlipidemia. Former [id number] tobacco use. Quit 2013. Past cardiac testing 08/08/12 Cardiac catheterization (Dr. Rivera)-Conclusions 1. Minimal to mild three-vessel disease. 2. Right dominant system. 3. Normal left ventricular function EF 60%. 08/07/12 Lexiscan-Small area of mild reversibility in the anterior wall suggestive the possibility of mild ischemia. Normal wall functions. EF 65% Physical Exam Vital Signs Vital Signs Date Time Temp Pulse Resp B/P (MAP) Pulse Ox O2 Delivery O2 Flow Rate FiO2 08/08/17 07:43 166/87 (113) 08/08/17 06:39 76 15 185/86 (119) 100 Room Air 08/07/17 23:09 64 16 118/65 (82) 97 Room Air 08/07/17 19:25 97 Room Air 08/07/17 19:24 74 20 165/89 (114) 97 Room Air 08/07/17 19:24 74 20 166/96 (119) 97 Room Air 08/07/17 19:01 87 18 96 Room Air 08/07/17 18:45 98.4 71 18 142/75 (97) 97 Physical Exam GENERAL: Alert WN, WD, NAD, female HEAD: NC, AT CV: RRR, without murmur, rub, or gallop, no JVD, no S3-S4. Chest wall nontender with palpation. RESP: Clear lungs throughout bilateral, no crackles, wheeze, rhonchi, symmetrical chest rise, nonlabored, able to speak in full sentences ABD: Soft, NT, ND, no masses, positive bowel tones EXT: Pulses +2x4, no dependent edema MS: Normal tone x4 extremities, nontender, no obvious deformities, full range of motion NEURO: CN II through CN XII grossly intact, motor strength 5/5 PSYCH: A+O x3, pleasant affect, appropriate speech, mildly anxious mood, appropriate insight and judgment SKIN: Normal turgor, normal texture Laboratory Laboratory Tests Test 08/07/17 19:20 08/07/17 22:15 08/08/17 01:00 White Blood Count 7.9 Red Blood Count 4.66 Hemoglobin 14.4 Hematocrit 41.9 Mean Corpuscular Volume 89.8 Mean Corpuscular Hemoglobin 30.8 Mean Corpuscular Hemoglobin Concent 34.3 Red Cell Distribution Width 12.9 Platelet Count 299 Mean Platelet Volume 9.0 Neutrophils (%) (Auto) 60.0 Lymphocytes (%) (Auto) 25.4 Monocytes (%) (Auto) 8.5 Eosinophils (%) (Auto) 5.3 Basophils (%) (Auto) 0.8 Neutrophils # (Auto) 4.7 Lymphocytes # (Auto) 2.0 Monocytes # (Auto) 0.7 Eosinophils # (Auto) 0.4 Basophils # (Auto) 0.1 CBC Comment DIFF FINAL Differential Comment Prothrombin Time 10.0 Prothromb Time International Ratio 1.0 Activated Partial Thromboplast Time 24.7 Blood Urea Nitrogen 21 Creatinine 1.24 Random Glucose 90 Total Protein 7.7 Albumin 4.3 Calcium Level 10.0 Magnesium Level 2.4 Alkaline Phosphatase 102 Aspartate Amino Transf (AST/SGOT) 36 Alanine Aminotransferase (ALT/SGPT) 30 Total Bilirubin 0.5 Sodium Level 138 Potassium Level 3.1 Chloride Level 98 Carbon Dioxide Level 25.5 Anion Gap 15 Estimat Glomerular Filtration Rate 45 Total Creatine Kinase 134 102 91 Creatine Kinase MB 2.2 1.6 Troponin I LESS THAN 0.02 LESS THAN 0.02 LESS THAN 0.02 Result Diagram: 08/07/17191908/07/171919 Imaging Last 72 hours Impressions Chest X-Ray 08/07/171842 Signed Impressions: CONCLUSION: No acute cardiopulmonary disease Course EKG NSR, nonspecific st changes Caprini VTE Risk Assessment Caprini VTE Risk Assessment: No/Low Risk (score <= 1) Caprini Risk Assessment Model Point Value = 1 Point Value = 2 Point Value = 3 Point Value = 5 Age 41-60 Minor surgery BMI > 25 kg/m2 Swollen legs Varicose veins or History of unexplained or recurrent spontaneous Oral contraceptives or hormone replacement Sepsis (< 1 month) Serious lung disease, including pneumonia (< 1 month) Abnormal pulmonary function Acute myocardial infarction Congestive heart failure (< 1 month) History of inflammatory bowel disease Medical patient at bed rest Age 61-74 Arthroscopic surgery Major open surgery (> 45 min) Laparoscopic surgery (> 45 min) Malignancy Confined to bed (> 72 hours) Immobilizing plaster cast Central venous access Age >= 75 History of VTE Family history of VTE Factor V Leiden Prothrombin [id number] Lupus anticoagulant Anticardiolipin antibodies Elevated serum homocysteine Heparin-induced thrombocytopenia Other congenital or acquired thrombophilia Stroke (< 1 month) Elective arthroplasty Hip, pelvis, or leg fracture Acute spinal cord injury (< 1 month) Prophylaxis Regimen Total Risk Factor Score Risk Level Prophylaxis Regimen 0-1 Low Early ambulation 2 Moderate Order ONE of the following: *Sequential Compression Device (SCD) *Heparin 5000 units SQ BID 3-4 Higher Order ONE of the following medications: *Heparin 5000 units SQ TID *Enoxaparin/Lovenox 40 mg SQ daily (WT < 150 kg, CrCl > 30 mL/min) *Enoxaparin/Lovenox 30 mg SQ daily (WT < 150 kg, CrCl > 10-29 mL/min) *Enoxaparin/Lovenox 30 mg SQ BID (WT < 150 kg, CrCl > 30 mL/min) AND/OR *Sequential Compression Device (SCD) 5 or more Highest Order ONE of the following medications: *Heparin 5000 units SQ TID (Preferred with Epidurals) *Enoxaparin/Lovenox 40 mg SQ daily (WT < 150 kg, CrCl > 30 mL/min) *Enoxaparin/Lovenox 30 mg SQ daily (WT < 150 kg, CrCl > 10-29 mL/min) *Enoxaparin/Lovenox 30 mg SQ BID (WT < 150 kg, CrCl > 30 mL/min) AND *Sequential Compression Device (SCD) Assessment and Plan Assessment and Plan #1 Chest pain-admitted to chest pain center. ACS ruled out with 3 sets of EKGs and cardiac enzymes. Continue to monitor on telemetry. Seen and evaluated by Dr. Fuentes Singer. Proceed with chemical stress testing this morning. If unremarkable, discharge home with follow to PCP. Agreeable to plan of care and verbalized understanding. #2 History of hypertension-continue lisinopril/HCTZ Rosalind Molina Aug 08, 2017 08:03
[2017-08-08] MEDS ORDERED: SODIUM CHLORIDE 0.9% FLUSH 10 ML FLUSH IV FLUSH SCH (09:00)
--- NOTE | 2017-08-08 14:23 | RADRPT ---
EXAM DATE: 08/08/2017 1:30 PM EDT AGE/SEX: 58 years / Female INDICATIONS: Angina. Atrial fibrillation Chest pain. CLINICAL DATA: This is the patient's initial encounter. Patient reports that signs and symptoms have been present for 1 day and indicates a pain score of 0/10. MEDICAL/SURGICAL HISTORY: Hypertension. Emphysema. ND. Smoker. Appendectomy. Hysterectomy. Angioplasty. COMPARISON: [facility], MYOCARDIAL PERF PHARM SPECT, 08/07/2012. . DOSE: 26.3 mCi Tc 99m Myoview at rest 8.6 mCi [id number] at stress REST HEART RATE: 71 BPM TARGET HEART RATE: 139 BPM MAX HEART RATE: 139 BPM REST BLOOD PRESSURE: 160/92 mmHg MAX BLOOD PRESSURE: 182/94 mmHg EJECTION FRACTION: >70 % TECHNIQUE: The patient underwent upright treadmill exercise in the chest pain center. Continuous EC G tracing was monitored during stress. Gated SPECT imaging was performed after stress, and conventio nal SPECT imaging was performed at rest. The examination was performed on a SPECT/CT scanner, both a ttenuation-corrected and non-corrected datasets were reviewed. FINDINGS: Distribution: The maximum perfused segment at stress is in the inferior wall. Perfusion: There is matched decreased activity in the anterior wall which may be from breast attenu ation. A definite area of ischemia is not seen. On the perfusion blackout maps, there is a suggestion of ischemia at the apex. Gated Study: There are intact wall motion and wall thickening without hypokinetic or dyskinetic segme nts. The ejection fraction is calculated at >70%. RISK CATEGORY: Low (<1% Annual Motality Rate) CONCLUSION: 1. No definite areas of ischemia are seen although the perfusion blackout map suggesting may be mild ischemia at the apex. 2. Decreased activity in the anterior wall which is matched and may be secondary to breast attenuati on. Electronically signed by: Logan Mallory MD 08/08/2017 2:21 PM EDT
--- NOTE | 2017-08-08 14:49 | HHI.DCPOC ---
Discharge Care Plan Diagnosis: (1) Atypical chest pain (2) Hypertension Goals to Promote Your Health * To prevent worsening of your condition and complications * To maintain your health at the optimal level Directions to Meet Your Goals Take your medications as prescribed Follow your dietary instruction Follow activity as directed Keep your appointments as scheduled Take your immunizations and boosters as scheduled If your symptoms worsen call your PCP, if no PCP go to Urgent Care Center or Emergency Room Smoking is Dangerous to Your Health. Avoid second hand smoke Call the 24-hour hour crisis hotline for domestic abuse at Rosalind Molina Aug 08, 2017 14:49
--- NOTE | 2017-08-09 08:12 | EKG ---
Date Performed: 08/08/2017 Time Performed: 00:33:52 PTAGE: 58 years EKG: Sinus rhythm NORMAL ECG PREVIOUS TRACING : 08/07/2017 22.27 Since previous tracing, no significant change noted DOCTOR: Fuentes Singer Interpretating Date/Time 08/09/2017 08:09:34
--- NOTE | 2017-08-09 08:13 | EKG ---
Date Performed: 08/07/2017 Time Performed: 18:56:37 PTAGE: 58 years EKG: Sinus rhythm BORDERLINE ECG PREVIOUS TRACING : 03/01/2017 01.19 Since previous tracing, no significant change noted DOCTOR: Fuentes Singer Interpretating Date/Time 08/09/2017 08:10:34
--- NOTE | 2017-08-09 08:13 | EKG ---
Date Performed: 08/07/2017 Time Performed: 22:27:42 PTAGE: 58 years EKG: Sinus rhythm NORMAL ECG PREVIOUS TRACING : 08/07/2017 18.56 Since previous tracing, no significant change noted DOCTOR: Fuentes Singer Interpretating Date/Time 08/09/2017 08:09:54
--- NOTE | 2017-08-09 08:16 | TR ---
Date Performed: 08/08/2017 Time Performed: 12:19:20 DOCTOR: Fuentes Singer DRUG LIST: CLINICAL HISTORY: REASON FOR TEST: REASON FOR ENDING: OBSERVATION: CONCLUSION: Aftab protocol completed. Stopped sec to reaching target heart rate and leg fatigue. Total Exercise Time=7:01 Max HR Achieved=85.0% Maximum HN=276 Maximum VS=809/94. No reprod chest pa in. No ectopy. Upsloping st segments. Base line st seg changes. Normal bp response. Good exercise dane erance. Recovery quick and unremarkable. Nuclear images pending. COMMENTS: Patient exercised using the Aftab protocol. No electrocardiographic changes were seen to suggest ischemia. Hemodynamic response to exercise was normal. No significant arrhythmia was prese nt.
== END 2017-08-08 16:09 | disposition home or self-care (01) ==
LOC: NEPE 18:34 → NEDA 21:08 → NEDH 08-08 01:22 → N03B 08-08 09:40
PROVIDERS: ADMIT Internal Medicine Cardiovascular Disease; ATTEND Internal Medicine Cardiovascular Disease
DX: R07.89 Other chest pain (principal); I10 Essential (primary) hypertension; E78.00 Pure hypercholesterolemia, unspecified; I25.2 Old myocardial infarction; R11.0 Nausea; R20.0 Anesthesia of skin; R42 Dizziness and giddiness; R20.2 Paresthesia of skin; J43.9 Emphysema, unspecified; F41.9 Anxiety disorder, unspecified; F32.9 Major depressive disorder, single episode, unspecified; F17.210 Nicotine dependence, cigarettes, uncomplicated; Z79.899 Other long term (current) drug therapy; Z79.82 Long term (current) use of aspirin
CPT/HCPCS: 71046; 78452; 80053; 82550; 82552; 83735; 84484; 85025; 85610; 85730; 93005; 93017; 96361; 96374; 99285; A9502; G0378; J2765; J7030